=== PATIENT | female | born 1950 | race Caucasian/White ===

== ENCOUNTER 2017-10-18 13:58 | Inpatient (IN) | payer BC, OTHER ==
[~2017-10-18] VITALS: Ht 172.7 cm; Wt 117.0 kg
--- NOTE | ~2017-10-18 | PLAN ---
[facility] [place] [address] REHAB UNIT PLAN OF CARE Name: KAITLIN ONEIL Room #: 511-P [facility] IN M.R.#: [id number] Admission: 10/18/17 Attend Phys: Frankie Summers MD Discharge: Date of : 52 Report #: [id number] THIS REPORT FOR: //name// CC: Frankie Summers [facility] DATE OF SERVICE: 10/20/2017 The patient is seen back today in followup. She is alert this morning. Temperature 36.8, pulse 76, respirations 20, blood pressure 119/66. She is having difficulty tolerating her therapies. She did miss some therapies yesterday as her therapy was on hold. She has the dense hemiplegia and with her low ejection fraction, we are needing to monitor her overall tolerance. She was able to get up in the chair yesterday and is dependent for bed to wheelchair transfers, dependent at this point for basic bed mobility. Upper body dressing is max assist, lower body is dependent. In speech therapy, she has severe comprehensive deficits. She is on pureed with nectar thickened liquid diet. We are encouraging her to try to eat more. ASSESSMENT: 1. Left hemispheric stroke, status post TPA with right hemiplegia. 2. Severe aphasia. Appears expressive greater than receptive. 3. Dysphagia and pureed nectar thickened liquids. We are encouraging her as far as increasing p.o. intake. 4. 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 5. Congestive heart failure with an ejection fraction of 20-25%. 6. Chronic obstructive pulmonary disease. 7. Coronary artery disease status post coronary artery bypass grafting. 8. Severe peripheral arterial disease with peripheral vascular disease. 9. Obstructive sleep apnea. 10. Obesity. 11. Hyperlipidemia. PLAN: The overall plan of care is based on the preadmission screen, post-admission physician evaluation and information garnered from therapy assessments. 1. Estimated length of stay is probably going to be quite long as she is at a very low functional level. 2. Medical prognosis is fair. 3. Anticipated interventions includes the interdisciplinary acute inpatient rehabilitation program with PT, OT and speech in the rehab therapy team as well as solution consultant physicians. 4. Anticipated functional outcomes would be for her to hopefully improve with basic transfers, mobility issues and basic ADLs. We will add vital stimulation to try [place] [address] REHAB UNIT PLAN OF CARE Name: KAITLIN ONEIL Ambrocio Room #: 511-P [facility] IN ..#: [id number] Admission: 10/18/17 Attend Phys: Frankie Summers MD Discharge: Date of : 52 Report #: [id number] 5. Discharge destination would ideally to be returning back home with her . 6. Expected therapy by discipline includes PT, OT and speech 1 hour per day each five days a week throughout the duration of the acute inpatient rehabilitation stay. Again, she did miss some therapies yesterday as her therapies were on hold for medical issues. We will be working with her further today to see how she does. <ELECTRONICALLY SIGNED> By: Frankie Summers MD 10/26/17 1124 0910 [id number] Frankie Summers MD /PMT
--- NOTE | ~2017-10-18 | DEA ---
[facility] [place] [address] SUMMARY Name: KATILIN ONEIL Room #: 511-P [facility] IN M.R.#: [id number] Admission: 10/18/17 Attend Phys: Frankie Summers MD Discharge: 10/31/17 Date of : 51 Report #: [id number] THIS REPORT FOR: //name// CC: Frankie Summers [facility] DATE OF SERVICE: 10/31/2017 SUMMARY: The patient was a 67-year-old white female with multiple medical issues, admitted to [facility] from [facility] post a CVA. Please see the admission history and physical. This was a left hemispheric stroke, for which she had TPA and had residual right-sided dense hemiplegia as well as severe aphasia, which appeared to be expressive greater than receptive. She was on a pureed nectar thickened liquid diet with severe dysphagia. She had dissection of the distal left common carotid artery, followed chronically and conservatively as per Vascular Surgery. She was obese with obstructive sleep apnea. The patient was involved in rehabilitation therapies. She continued with the severe aphasia, although she could grunt and say simple one-word statements. No improvement was noted with her dense hemiplegia. She was trying to do the best she could with p.o. intake, but with her thickened liquid diet, was needing to have IV hydration. The patient and refused consideration for a PEG tube. The patient was a no code blue and was noted to be more somnolent yesterday. She was not able to tolerate therapies. Case management was involved and palliative care saw her and plans are underway for her to go to the hospice. This morning, she was noted to not be moving without respirations by nursing and she was pronounced with verification by 2 RNs. The patient's was notified. DIAGNOSES: 1. Left hemispheric stroke with dense right hemiplegia. 2. Severe aphasia. 3. Dysphagia. 4. Dissection of left common carotid artery. 5. Congestive heart failure. 6. Chronic obstructive pulmonary disease. 7. Coronary artery disease, status post prior coronary artery bypass grafting. 8. Severe peripheral vascular disease. 9. Obstructive sleep apnea. 10. Obesity. 11. Renal insufficiency with dehydration. <ELECTRONICALLY SIGNED> By: Frankie Summers MD 11/07/17 1030 0934 0948 Frankie Summers MD /nt
--- NOTE | ~2017-10-18 | HC ---
[place] [address] CONSULTATION Name: KAITLIN ONEIL Room #: 511-P [facility] IN .R.#: [id number] Admission: 10/18/17 Attend Phys: Frankie Summers MD Discharge: 10/31/17 Date of : 52 Report #: [id number] THIS REPORT FOR: //name// CC: Frankie Vargas DO PALLIATIVE CARE CONSULTATION REQUESTING PHYSICIAN: Dr. Vargas. CHIEF COMPLAINT: Hypoxic respiratory failure. HISTORY OF PRESENT ILLNESS: The patient is a 67-year-old female who was initially admitted to inpatient rehab from [facility] after having sustained a hemispheric CVA. She has unfortunately despite receiving alteplase, had right hemiplegia, severe aphasia and dysphagia as well. She was initially admitted on 10/18/2017, however, has had a recent decline in her overall status. Unfortunately, she has had worsening of her respiratory status, particularly today and we believe this is due to the reduction in her Lasix due to acute renal failure. Unfortunately, the patient is in a state in which there is not an easy solution to either one of these scenarios. I did discuss with the patient's today as the patient was not alert or able to respond to questions. The patient's had been leaning towards hospice care at this point in time. PAST MEDICAL HISTORY: Significant for systolic CHF with severe type, ejection fraction 20-25%; COPD; coronary artery disease, status post coronary artery bypass graft; peripheral vascular disease and sleep apnea. She has also had a left carotid dissection. This was followed at her previous hospitalization. Also, now with severe aphasia, dysphagia, right hemiplegia, CKD stage 4. PAST SURGICAL HISTORY: Exploratory laparoscopy, appendectomy, cholecystectomy, partial hysterectomy, coronary artery bypass graft, multiple stent placements, left wrist ORIF, lower extremities fibular ORIF on the right, carotid endarterectomy, carotid dissection secondarily. ALLERGIES: LISINOPRIL, WARFARIN AND CERTAIN TYPES OF TAPE. SOCIAL HISTORY: The patient's spouse is present. He is her surrogate decision maker and has DPOA on file. She is currently listed as DNR. I confirmed this with who does not have an outside the hospital DNR form signed at this point in time. MEDICATIONS: Reviewed. Inpatient medications: These are stable; however, she did receive a dose of 40 mg Lasix one time just prior to my arrival. [address] [address] CONSULTATION Name: KAITLIN ONEIL Room #: 511-P [facility] IN M.R.#: [id number] Admission: 10/18/17 Attend Phys: Frankie Summers MD Discharge: 10/31/17 Date of : 51 Report #: [id number] REVIEW OF SYSTEMS: Unable to obtain at this time due to medical condition. PHYSICAL EXAMINATION: VITAL SIGNS: At today's visit included temperature 36.8, pulse 80, blood pressure 130/75, 100%, although 99% on her CPAP at this pertinent point in time with a 5 liter . GENERAL: The patient is not alert. She has poor attention level at this point. She is not in acute distress at this current time. CARDIOVASCULAR: Regular rate and rhythm, though slightly tachycardic. She has a normal peripheral perfusion at this point. RESPIRATORY: She has diffuse rales noted. Otherwise, no respiratory distress, no accessory muscle use. ABDOMEN: This is soft. I am unable to assess tenderness. She has diminished bowel sounds noted. GENITOURINARY: Does have catheter in place with slightly darkened urine output. LABORATORY DATA: Most recently, hemoglobin 10.4. Her creatinine was 1.7. Sodium was 141. ASSESSMENT AND PLAN: 1. Acute on chronic hypoxic respiratory failure. At this point in time, I have discussed extensively with the patient's spouse. We are aiming towards inpatient hospice facility. I have discussed this with rn case manager at this time. I have extensively discussed what this would entail and that a typical duration of stay is approximately one week and there is a possibility of a more permanent placement. The patient's spouse would like to pursue this at this time. I believe that she qualifies given that she will need IV Lasix to maintain the level of comfort with regards to her current CHF exacerbation. I have additionally ordered another dose of Lasix to be received this evening and additional doses to be received tomorrow b.i.d. The patient may benefit additional from a Lasix drip; however, at this point in time, we will start with IV Lasix in an attempt to improve her overall dyspnea. I have written for Roxanol and Ativan as well and also glycopyrrolate for secretions. I spent approximately 35 minutes on advanced directive discussion, did have outside the hospital DNR form signed today, which is in the chart and did confirm that inpatient hospice facility will be able to evaluate tomorrow. 2. [id number] congestive heart failure exacerbation, systolic type. At this point in time, again have favored aggressive Lasix administration with at this point in time less favor ability towards her renal failure . We will go ahead and aggressively dose despite the knowledge that she will have further renal failure, which is discussed with her . This was preferable per him and also per my assessment at this time. 3. Acute on chronic renal failure. At this point in time, as above, will favor Lasix to administer more and to try to improve her overall respiratory status versus her kidney function at this point. 4. Coronary artery disease. Again at this point in time, I would continue her [place] [address] CONSULTATION Name: KAITLIN ONEIL Room #: 511-P [facility] IN M.R.#: [id number] Admission: 10/18/17 Attend Phys: Frankie Summers MD Discharge: 10/31/17 Date of : 51 Report #: [id number] current medications including Imdur and Ranexa to favor her overall comfortability, but also I have provided opiates in case she has pain related to this as this will improve oxygenation. She has p.r.n. nitroglycerin as well. Thank you very much for the consultation. Please contact me for any further questions with regards to her care. <ELECTRONICALLY SIGNED> By: Billy Razo DO 12/05/17 1631 1638 1844 Billy Razo DO /nt
--- NOTE | ~2017-10-18 | HC ---
[facility] [place] [address] CONSULTATION Name: KAITLIN ONEIL Room #: 511-P ADM IN M.R.#: [id number] Admission: 10/18/17 Attend Phys: Frankie Summers MD Discharge: Date of : 51 Report #: [id number] THIS REPORT FOR: //name// CC: Frankie Kebede REASON FOR CONSULTATION: Elevated creatinine. REASON FOR PRESENTATION: Continuation of her rehabilitation efforts from another facility. HISTORY OF PRESENT ILLNESS: The details of the history were obtained from the chart as the patient currently has mental status changes and she is not able to provide me with any history. She had remote history of prior CVA. She presented to another facility Emergency Room with right-sided weakness. She was found to have left colon artery dissection. She was followed by Vascular Surgery with recommendation of conservative treatment. She had severe dysphagia. She is not able to take anything by mouth. Recommendations were to consider tube feeds; however, the family declined because of the advanced directive. She is aphasic. She had an extensive past medical history including CHF with an ejection fraction of 25%. PAST MEDICAL HISTORY: 1. Cardiomyopathy with ejection fraction of 25%. 2. Hyperlipidemia. 3. Chronic kidney disease. 4. Diabetes mellitus. 5. Depression. 6. Recent stroke. 7. Peripheral vascular disease. 8. Coronary artery disease. 9. Status post exploratory laparotomy. 10. Appendectomy. 11. Cholecystectomy. 12. Hysterectomy. 13. CABG. 14. Dissection of the right coronary artery during an angioplasty with repair. 15. Carotid endarterectomy. ALLERGIES: LISINOPRIL, WARFARIN AND TAPE. SOCIAL HISTORY: Significant for tobacco abuse. No drug or alcohol abuse. Lives with her . REVIEW OF SYSTEMS: Unobtainable given the patient's current mental status. MEDICATIONS: [facility] [address] [place] [address] CONSULTATION Name: KAITLIN ONEIL Room #: 511-P [facility] IN [facility]#: [id number] Admission: 10/18/17 Attend Phys: Frankie Summers MD Discharge: Date of : 51 Report #: [id number] 1. Plavix. 2. Isosorbide. 3. Carvedilol. 4. Losartan. 5. Aspirin. 6. Gabapentin. 7. Torsemide. 8. Metolazone. PHYSICAL EXAMINATION: GENERAL: She is confused. VITAL SIGNS: Blood pressure is 111/76. HEAD AND NECK: Aphasic. Carotid bruit present. CHEST: Decreased air entry bilaterally. CARDIOVASCULAR: No rub. ABDOMEN: Soft, nontender. LOWER EXTREMITIES: Chronic venous stasis changes. NEUROLOGIC: Confused, not able to examine the cranial nerves due to noncooperation. Flaccid right-sided hemiparesis. LABORATORY DATA: Laboratory values reviewed from yesterday. No labs from today. Sodium was 159 yesterday, BUN was 100 and a creatinine was 2.4. ASSESSMENT, IMPRESSION AND PLAN: 1. Hypernatremia. 2. Chronic kidney disease. 3. Severe dehydration with lack of free water. 4. Status post cerebrovascular accident with hemiparesis. 5. Cardiomyopathy. 6. It will be very difficult to manage this patient's hypernatremia without appropriate intravenous fluid. Family has completely declined tube feeds due to advanced directive. This will be a recurrent issue. She was started on D5W yesterday. We have to be very cautious with her volume status given her ejection fraction. I will back off all of the diuretic regimens given the fact that she does not have that much fluid on board. We will diurese when needed. With her acute kidney injury, the Neurontin dose needs to be adjusted. Metolazone had to be discontinued. Losartan had also need to be discontinued. This is a very terminal illness and we should be very realistic discussing future plans with the family, including palliative and comfort care only. I will follow from a distance. <ELECTRONICALLY SIGNED> By: Christi Bailey MD 10/23/17 0958 0734 0833 Christi Bailey MD /nt
--- NOTE | ~2017-10-18 | H ---
[facility] [place] [address] HISTORY AND PHYSICAL Name: KAITLIN ONEIL Room #: 511-P ADM IN M.R.#: [id number] Admission: 10/18/17 Attend Phys: Frankie Summers MD Discharge: Date of : 51 Report #: [id number] THIS REPORT FOR: //name// CC: Frankie Montenegroikh DATE OF SERVICE: 10/18/2017 HISTORY OF PRESENT ILLNESS: The patient is a 67-year-old white female who has multiple medical issues, was transferred to [facility] rehab unit from [facility] post CVA. She had had a prior mild CVA. She used a walker for ambulation around the house. She was taking Plavix at home. Last , on 10/12/2017, the patient was apparently playing cards with a friend when she started having right-sided weakness. She was taken to the Emergency Room. Per records, Alteplase was given. Imaging showed a focal dissection flap left common carotid artery with suggestion of a dissecting aneurysm. This was followed by Vascular Surgery, chronically to be managed conservatively. She was noted to be aphasic with severe right-sided plegia. She was noted to have severe dysphagia. Tube feeding was noted to be recommended in a decline secondary to patient's advanced directive wishes. She is on a pureed nectar thickened liquid diet currently. She has been admitted now for acute in-hospital inpatient rehabilitation. PAST MEDICAL HISTORY: CHF with ejection fraction 25%, morbid obesity, obstructive sleep apnea, BiPAP, chronic kidney disease, diabetes mellitus, hypertension, hyperlipidemia, prior CVA as noted above, COPD with chronic home oxygen use, history of respiratory failure, anxiety, depression, severe peripheral vascular disease, diverticulosis, psoriasis, coronary artery disease, tobacco abuse, and breast cyst. PAST SURGICAL HISTORY: Exploratory laparotomy, appendectomy, cholecystectomy, partial hysterectomy, CABG, cardiac stent. She apparently had CABG with accidental dissection of right coronary artery during angioplasty with repair, left wrist ORIF, right fibular ORIF lower extremity revascularization with stenting, carotid endarterectomy, and right cataract. ALLERGIES: LISINOPRIL, WARFARIN, PLASTIC TAPE. MEDICATIONS: Please see the full medication listing. Each of these was individually reconciled and includes vitamins, herbals, and supplements. HABITS: Past tobacco abuse, [id number]-[id number] history, quit greater than a year ago. Alcohol use occasionally. FAMILY HISTORY: Noncontributory. [address] [address] HISTORY AND PHYSICAL Name: KAITLIN ONEIL Room #: 511-P [facility] IN ..#: [id number] Admission: 10/18/17 Attend Phys: Frankie Summers MD Discharge: Date of : 52 Report #: [id number] SOCIAL HISTORY: Lives with her in a house, which is ramped. The patient used a walker to get around. works the p.m. shift, typically from around 1 o'clock or so until 11:00 p.m. There are neighbors that can help out. REVIEW OF SYSTEMS: Did not offer any current complaints of chest pain, shortness of breath or abdominal discomfort. Review of systems was difficult to obtain secondary to her communication problems. No current complaints of extremity pain complaints, however. She has the obvious right-sided weakness. PHYSICAL EXAMINATION: GENERAL: Obese 67-year-old white female, in no obvious distress. VITAL SIGNS: Last recorded temperature 97.6, pulse 87, respirations 20, blood pressure 138/76. HEENT: The patient is alert. She tends to defer to her . She has a right facial droop. She had difficulty trying to move her mouth for me. EOMs, she could fix and follow, looking to the left, but had difficulty with her eyes looking to the right. She did not actually verbalize for me, but she did nod her head. She was able to follow basic commands as far as volitional movement of the left upper and left lower extremity. CHEST: Sounded clear to auscultation. CARDIAC: Regular rate and rhythm with extra beats. ABDOMEN: Obese, bowel sounds positive, nontender. She has a definite right facial droop and is aphasic. EXTREMITIES: She has dense right-sided flaccid plegia upper and lower extremity. She has venous stasis changes bilateral lower extremities distally. She has functional range of motion and strength of the left upper and left lower extremity with limited testing. ASSESSMENT: A 67-year-old white female with the following problems: 1. Left hemispheric stroke, status post TPA with right-sided hemiplegia. 2. Severe aphasia. Appears to be expressive greater than receptive. 3. Dysphagia, on pureed nectar thickened liquids. 4. Dissection of distal left common carotid artery followed chronically conservatively as per Vascular Surgery. 5. Congestive heart failure with ejection fraction 20-25%. 6. Chronic obstructive pulmonary disease, was on home inhalers. 7. Coronary artery disease, status post coronary artery bypass graft. 8. Severe peripheral arterial disease with peripheral vascular disease. 9. Obstructive sleep apnea. 10. Obesity. 11. Hyperlipidemia. 12. Chronic kidney disease. 13. Do not resuscitate status. PLAN: The patient is admitted for acute in-hospital inpatient rehabilitation. [facility] [address] [place] [address] HISTORY AND PHYSICAL Name: KAITLIN ONEIL Room #: 511-P ADM IN [facility].#: [id number] Admission: 10/18/17 Attend Phys: Frankie Summers MD Discharge: Date of : 52 Report #: [id number] From a postadmission physician evaluation perspective, there are no relevant changes since the preadmission screening. Please see the above review of prior and current medical and functional conditions and comorbidities. Please see the patient's previous and current functional status. As far as risk of complications, the patient has multiple medical comorbidities as noted above. Initial plan of care involves the interdisciplinary acute inpatient rehabilitation program with goal of maximizing the patient's functional independence, so that she can hopefully return back to her prior living situation. Measurable functional goals would be for the patient to become modified independent with transfers, mobility and ADLs and communication, cognition and swallowing, so that she can return back to the home setting. Prognosis is reasonably good with estimated length of stay probably fairly long as she is at a low functional level. Potential barriers would include her multiple medical comorbidities and decreased functional status. <ELECTRONICALLY SIGNED> By: Frankie Summers MD 10/26/17 1124 1021 1051 Frankie Summers MD /[facility]
--- NOTE | ~2017-10-18 | HC ---
[facility] [place] [address] CONSULTATION Name: KAITLIN ONEIL Room #: 511-P ADM IN M.R.#: [id number] Admission: 10/18/17 Attend Phys: Frankie Summers MD Discharge: Date of : 52 Report #: [id number] THIS REPORT FOR: //name// CC: Frankie Summers [facility] DATE OF SERVICE: 10/21/2017 NEUROBEHAVIORAL STATUS EXAM AGE: 67. ATTENDING PHYSICIAN: Frankie Summers MD PROFESSIONAL ADVISOR: Toni Hartley, PhD CLINICAL PRESENTATION: The patient is a 67-year-old female admitted to the [facility] rehabilitation unit for a comprehensive inpatient rehabilitation program to improve functional mobility, activities of daily living and self-care and mental status secondary to deficits from a cerebrovascular accident. The patient is reported to have been playing cards with a friend on 10/12/2017 when she started to develop right-sided weakness. 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 The patient was subsequently brought to the hospital and admitted with severe aphasia and right hemiparesis. 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 The patient is currently on a do not resuscitate status. Complete description of her medical condition, history and medications can be found in her medical record. Neuropsychological consultation was requested to provide assistance in the assessment of cognitive and emotional status and to provide recommendations and services. Prior to this most recent medical event, she was living with her in their home. She has a history of previous cerebrovascular accident with an event in September of 2012. Prior to this recent medical event, she was living independently with her in their home. She has 3 children. The patient had 2 brothers and an identical twin that are all . She is a high school graduate. 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 TECHNIQUES UTILIZED: Clinical interview, review of medical records, staff consultation and behavioral observation, brief mental status exam. EXAMINATION FINDINGS: The patient was unable to describe or indicate the reason for her hospitalization. She presents with severe impairment in verbal expression. Auditory comprehension seems slightly better than verbal expression. The patient is unable to describe any current symptoms or problems that are requiring assistance. She was minimally responsive during the interview with severe deficits in verbally mediated processing. Her behavior is restless and fidgety. I am uncertain as to her level of comprehesion regarding location, reason for hospitalization and purpose of treatment. DIAGNOSTIC IMPRESSION: Major neurocognitive disorder (dementia), due to vascular disease -- extent to be determined - severe at this time. RECOMMENDATIONS: The patient will require 24-hour care that includes assistance in medical, financial and nutritional management. She is functioning at a very low level at this time. Followup neuropsych assessment will be of benefit to clarify the severity of cognitive deficits as she slowly recovers. At this time, complete superivision and structure needed for her to maintain safety. She is not a reliable historian at this time. Thank you very much for me to provide the consultation on this patient. <ELECTRONICALLY SIGNED> By: Toni Hartley, PhD 10/22/17 [id number] Toni Hartley, PhD /nt
[2017-10-18 13:15] VITALS: BP 109/67
[~2017-10-18 13:58] MED LIST: ACETAMINOPHEN325 M1 PO; ALLEGRA ALLERG180 MG PO; ALLEGRA ALLERGY60 MG PO; ALLEGRA180 MG PO; AMOXICILLIN 50500 MG PO; ASPIR 8181 M1 PO; ASPIRIN EC325 M1 PO; ASPIRIN325 PO; ATORVASTATIN CA40 MG PO; AUGMENTIN 875875 MG PO; BUSPAR 5 MG TABL5 M1 PO; BUSPIRONE HCL10 MG PO; CALCIUM 600 +1 EAC1 PO; CARBIDOPA-LEVO1 EAC9 PO; CARISOPRODOL 3350 M1 PO; CARISOPRODOL 3350 MG PO; CARVEDILOL25 MG PO; CHANTIX0.5 MG PO; CLONAZEPAM 0.50.5 M1 PO; COLACE 100 MG100 MG PO; COZAAR 25 MG TA25 MG PO; COZAAR 50 MG TA50 M1 PO; COZAAR100 MG PO; DEMADEX20 MG PO; DESYREL50 MG PO; DIOVAN40 MG PO; DOXYCYCLINE 10100 MG PO; DULERA 100 MCG/13 GM INH; DUONEB 2.5-0.5 M3 ML INH; DUREZOL5 ML OPHTHALMIC; EPIPEN 2-P0.3 MG/0.3 IM; FISH OIL 1,0001 EAC5 PO; FISH OIL 1,001000 M2 PO; FLONASE 0.05%50 MCG NASAL; FUROSEMIDE 80 M80 M1 PO; GLUCOPHAGE1000 MG PO; IMDUR 30 MG TAB30 M1 PO; IMDUR 60 MG TAB60 M1 PO; ISOSORBIDE DINI30 MG PO; LANTUSSOLASTAR SUBQ; LASIX 40 MG TAB40 MG PO; LEVALBUTER1.25 MG/0. INH; LEVAQUIN 500 M500 M2 PO; LEVEMIR SUBQ; LIPITOR40 MG PO; LIPITOR80 MG PO; LO-DOSE ASPIRIN81 M1 PO; LOPRESSOR25 PO; METOLAZONE 2.52.5 M1 PO; MIRALAX17 GM PO; MOM PO; MUCINEX TA600 MG/TA2 PO; MULTIVITAMIN; NASONEX17 GM NASAL; NEURONTIN 300M300 M2 PO; NEVANAC3 ML OPHTHALMIC; NICOTINE TRANSD21 M1 TRANSDERM; NITROGLYCERIN0.4 MG SUBLING; NOVOLIN 70100 UNIT/1 SQ; NOVOLIN R100 UNIT/1 SUBQ; NOVOLOG100 UNIT/1 SUBQ; PENTOXIFYLLINE400 MG PO; PLAVIX 75 MG TA75 M1 PO; PREDNISONE 10 M10 M1 PO; PREDNISONE 10 M10 MG PO; PREDNISONE 20 M20 MG PO; PREDNISONE 5 MG5 M1; PREDNISONE 5 MG5 M1 PO; PREDNISONE50 MG PO; PRILOSEC 20 MG20 MG PO; RANEXA1000 MG PO; ROCEPHIN 11 GM/100 M IV; SOMA350 MG PO; SPIRIVA INH; STOOL SOFTENER100 M1 PO; SYMBICORT160 MCG/4. INH; SYNTHROID50 MCG PO; TOBRAMYCIN SULFA5 M1 OPHTHALMIC; TOPROL XL25 MG PO; TRAMADOL 50 MG50 MG PO; TRAZODONE HCL50 MG PO; TRICOR145 MG PO; TRILIPIX135 MG PO; TYLENOL325 MG PO; XOPENEX HF1 UDINHALE IH; XOPENEX1.25 MG/3 INH; ZOLOFT 50 MG TA50 M1 PO; [UNRECOGNIZED DRUG - OTHER] PO
[2017-10-18 20:00] VITALS: BP 98/55
[2017-10-18 21:40] VITALS: BP 136/72
[2017-10-19] VITALS (9 sets, daily range): BP systolic 78–138; BP diastolic 41–76
[2017-10-19 00:18] LABS: URINE BLOOD NEGATIVE (Negative); URINE CLARITY CLEAR; URINE COLOR YELLOW; URINE GLUCOSE-RANDOM* NEGATIVE (Negative); URINE KETONES NEGATIVE (Negative); URINE LEUKOCYTES-REFLEX NEGATIVE (Negative); URINE NITRITE-REFLEX NEGATIVE (Negative); URINE PROTEIN (DIPSTICK) NEGATIVE (Negative); URINE SPECIFIC GRAVITY 1.015 (1.005-1.035); URINE UROBILINOGEN 0.2 E.U./dl (0.2-1.0)
[2017-10-19 00:23] LABS: ICTOTEST (BILI CONFIRMATORY) Negative (Negative); URINE BILIRUBIN NEGATIVE (Negative)
[2017-10-19 07:23] LABS: HEMATOCRIT 36.1 % (37.0-47.0); HEMOGLOBIN 11.6 gm/dL (12.0-15.0); MCH 30.8 pg (26.0-34.0); MCHC 32.2 g/dL (28.0-37.0); MCV 95.7 fL (80.0-100.0); RBC 3.77 mil/uL (4.20-5.00); RDW 18.4 % (10.5-14.5); WBC 11.9 thou/uL (4.0-11.0)
[2017-10-19 07:36] LABS: CALCIUM 8.9 mg/dL (8.5-10.1); POTASSIUM 3.6 mmol/L (3.5-5.1)
[2017-10-20 07:02] LABS: ALBUMIN 2.4 g/dL (3.4-5.0); CALCIUM 8.3 mg/dL (8.5-10.1); CREATININE 2.4 mg/dL (0.6-1.0); TOTAL BILIRUBIN 0.9 mg/dL (<0.1-1.0); TOTAL PROTEIN 5.8 g/dL (6.4-8.2)
[2017-10-20 19:19] VITALS: BP 111/76
[2017-10-21 07:56] LABS: CALCIUM 8.3 mg/dL (8.5-10.1); CREATININE 2.9 mg/dL (0.6-1.0); POTASSIUM 4.4 mmol/L (3.5-5.1)
[2017-10-21 07:59] LABS: ALBUMIN 2.5 g/dL (3.4-5.0); PHOSPHORUS 5.5 mg/dL (2.5-4.9)
[2017-10-21 08:00] VITALS: BP 98/63
[2017-10-21 20:00] VITALS: BP 119/65
[2017-10-22 04:50] LABS: ABSOLUTE NEUTROPHILS 8.5 thou/uL (1.4-8.2); BASOPHILS 0.1 % (0.0-2.0); EOSINOPHILS 0.7 % (0.0-3.0); HEMOGLOBIN 11.3 gm/dL (12.0-15.0); LYMPHOCYTES 5.1 % (24.0-44.0); MCHC 32.4 g/dL (28.0-37.0); MCV 95.7 fL (80.0-100.0); MONOCYTES 7.8 % (1.0-8.0); POLYS 86.3 % (36.0-66.0); RBC 3.66 mil/uL (4.20-5.00); RDW 18.1 % (10.5-14.5); WBC 9.8 thou/uL (4.0-11.0)
[2017-10-22 04:52] LABS: ALBUMIN 2.6 g/dL (3.4-5.0); CALCIUM 7.7 mg/dL (8.5-10.1); CREATININE 3.1 mg/dL (0.6-1.0); PHOSPHORUS 5.5 mg/dL (2.5-4.9); POTASSIUM 4.2 mmol/L (3.5-5.1)
[2017-10-22 04:55] LABS: PLATELET COUNT 111 thou/uL (150-400)
[2017-10-22 05:46] LABS: ANISOCYTOSIS 1+; LARGE PLATELETS OCCASIONAL; POLYCHROMASIA 1+
[2017-10-22 08:00] VITALS: BP 123/62
[2017-10-22 16:02] VITALS: BP 126/62
[2017-10-22 19:30] VITALS: BP 123/75
[2017-10-23 07:32] VITALS: BP 162/87
[2017-10-23 10:18] LABS: CALCIUM 8.9 mg/dL (8.5-10.1); CREATININE 2.9 mg/dL (0.6-1.0); POTASSIUM 3.9 mmol/L (3.5-5.1)
[2017-10-23 10:21] LABS: ALBUMIN 2.3 g/dL (3.4-5.0); PHOSPHORUS 4.5 mg/dL (2.5-4.9)
[2017-10-23 15:50] VITALS: BP 131/71
[2017-10-23 20:00] VITALS: BP 116/65
[2017-10-24 07:24] LABS: ALBUMIN 2.3 g/dL (3.4-5.0); CALCIUM 8.3 mg/dL (8.5-10.1); CREATININE 2.6 mg/dL (0.6-1.0); PHOSPHORUS 4.4 mg/dL (2.5-4.9); POTASSIUM 3.5 mmol/L (3.5-5.1)
[2017-10-24 08:20] VITALS: BP 107/50
[2017-10-24 08:24] VITALS: BP 107/50
[2017-10-24 08:39] VITALS: BP 108/63
[2017-10-24 10:59] VITALS: BP 131/74
[2017-10-24 20:00] VITALS: BP 113/66
[2017-10-25 06:27] LABS: ALBUMIN 2.2 g/dL (3.4-5.0); CALCIUM 8.9 mg/dL (8.5-10.1); CREATININE 2.3 mg/dL (0.6-1.0); PHOSPHORUS 3.8 mg/dL (2.5-4.9); POTASSIUM 3.2 mmol/L (3.5-5.1)
[2017-10-25 08:00] VITALS: BP 109/82
[2017-10-25 20:00] VITALS: BP 125/67
[2017-10-26 09:34] VITALS: BP 144/76
[2017-10-26 20:04] VITALS: BP 107/83
[2017-10-26 20:06] VITALS: BP 107/83
[2017-10-27 05:57] LABS: ALBUMIN 2.3 g/dL (3.4-5.0); CALCIUM 8.7 mg/dL (8.5-10.1); CREATININE 1.7 mg/dL (0.6-1.0); PHOSPHORUS 4.2 mg/dL (2.5-4.9); POTASSIUM 3.4 mmol/L (3.5-5.1)
[2017-10-27 07:19] VITALS: BP 110/75
[2017-10-27 19:33] VITALS: BP 129/71
[2017-10-28 07:30] VITALS: BP 131/75
[2017-10-28 20:00] VITALS: BP 119/70
[2017-10-29 03:13] LABS: ALBUMIN 2.2 g/dL (3.4-5.0); CREATININE 1.6 mg/dL (0.6-1.0); PHOSPHORUS 4.8 mg/dL (2.5-4.9)
[2017-10-29 08:00] VITALS: BP 147/79
[2017-10-29 16:09] VITALS: BP 134/61
[2017-10-29 20:20] VITALS: BP 126/58
[2017-10-30 04:56] LABS: ALBUMIN 2.3 g/dL (3.4-5.0); CALCIUM 8.8 mg/dL (8.5-10.1); CREATININE 1.7 mg/dL (0.6-1.0); PHOSPHORUS 5.1 mg/dL (2.5-4.9); POTASSIUM 4.4 mmol/L (3.5-5.1)
[2017-10-30 07:30] VITALS: BP 130/75
[2017-10-30 08:29] LABS: HEMATOCRIT 32.4 % (37.0-47.0); HEMOGLOBIN 10.4 gm/dL (12.0-15.0); MCH 30.4 pg (26.0-34.0); MCHC 32.1 g/dL (28.0-37.0); MCV 94.6 fL (80.0-100.0); PLATELET COUNT 196 thou/uL (150-400); RBC 3.42 mil/uL (4.20-5.00); RDW 16.7 % (10.5-14.5)
[2017-10-30 08:30] LABS: CALCIUM 9.4 mg/dL (8.5-10.1); CREATININE 1.7 mg/dL (0.6-1.0); POTASSIUM 4.4 mmol/L (3.5-5.1)
[2017-10-30 08:58] LABS: ABSOLUTE NEUTROPHILS 9.5 thou/uL (1.4-8.2); ANISOCYTOSIS 1+; METAMYELOCYTES 1 %; MYELOCYTES 2 %
[2017-10-30 08:59] LABS: POLYCHROMASIA OCCASIONAL
[2017-10-30 17:32] VITALS: BP 125/62
[2017-10-30 19:50] VITALS: BP 106/50
== END 2017-10-31 12:45 | DRG 56 ==
PROVIDERS: Family Medicine; Hospitalist; Internal Medicine Nephrology; Nurse Practitioner; Physical Medicine & Rehabilitation
DX: G81.91 Hemiplegia, unspecified affecting right dominant side (principal); I63.9 Cerebral infarction, unspecified; I50.21 Acute systolic (congestive) heart failure; J96.01 Acute respiratory failure with hypoxia; I42.9 Cardiomyopathy, unspecified; E87.0 Hyperosmolality and hypernatremia; I13.0 Hypertensive heart and chronic kidney disease with heart failure and stage 1 through stage 4 chronic kidney disease, or unspecified chronic kidney disease; N17.9 Acute kidney failure, unspecified; E46 Unspecified protein-calorie malnutrition; R47.01 Aphasia; R13.10 Dysphagia, unspecified; I50.9 Heart failure, unspecified; J44.9 Chronic obstructive pulmonary disease, unspecified; I25.10 Atherosclerotic heart disease of native coronary artery without angina pectoris; I73.9 Peripheral vascular disease, unspecified; G47.33 Obstructive sleep apnea (adult) (pediatric); E78.5 Hyperlipidemia, unspecified; N18.9 Chronic kidney disease, unspecified; E11.22 Type 2 diabetes mellitus with diabetic chronic kidney disease; F32.9 Major depressive disorder, single episode, unspecified; E86.0 Dehydration; F01.50 Vascular dementia, unspecified severity, without behavioral disturbance, psychotic disturbance, mood disturbance, and anxiety; E66.01 Morbid (severe) obesity due to excess calories; F41.9 Anxiety disorder, unspecified; Z66 Do not resuscitate; E11.65 Type 2 diabetes mellitus with hyperglycemia; E87.6 Hypokalemia; Z95.1 Presence of aortocoronary bypass graft; Z68.38 Body mass index [BMI] 38.0-38.9, adult; Z90.49 Acquired absence of other specified parts of digestive tract; Z88.8 Allergy status to other drugs, medicaments and biological substances; Z91.041 Radiographic dye allergy status; Z99.81 Dependence on supplemental oxygen; Z90.711 Acquired absence of uterus with remaining cervical stump; Z95.5 Presence of coronary angioplasty implant and graft; Z87.81 Personal history of (healed) traumatic fracture; Z79.82 Long term (current) use of aspirin; Z79.4 Long term (current) use of insulin; Z79.899 Other long term (current) drug therapy; Z98.41 Cataract extraction status, right eye
CPT/HCPCS: 10112